=== PATIENT | female | born 1985 | race Asian ===

== ENCOUNTER 2019-02-14 10:03 | Inpatient (IN) | payer BC ==
[2019-02-14 10:39] VITALS: BMI 23.6
[2019-02-14] MEDS ORDERED: Ondansetron PF 4 MG/2 ML Vial IVP PRN ×3 (10:44→16:11)
[2019-02-14] MEDS ORDERED: Promethazine HCl 25 MG/ML VIAL IM PRN ×2 (10:44→13:21)
[2019-02-14] MEDS ORDERED: Docusate 100 MG CAP PO PRN (10:44)
[2019-02-14] MEDS ORDERED: hydrALAZINE 20 MG/ML VIAL SLOW IVP PRN ×2 (10:44→16:11)
[2019-02-14] MEDS ORDERED: Bicitra 30 ML UDCUP PO SCH (10:45)
[2019-02-14] MEDS ORDERED: CEFAZOLIN 2 GM in Premix Bag 1 BAG IVPB SCH (10:45)
[2019-02-14] MEDS ORDERED: Lactated Ringer's 1,000 ML IV SCH (10:45)
[2019-02-14 11:46] LABS: HBSAg Index 0.18 S/CO (0-0.99); Hep B Surf Ag Non-Reactive S/CO (NonReactive)
[2019-02-14 11:52] LABS: Syphilis Antibody Nonreactive (Nonreactive); Syphilis Antibody Index 0.06 S/CO (<1.00 Non-Reactive)
[2019-02-14 11:54] LABS: Hemoglobin 12.9 g/dL (12.0-16.0); Mean Corpuscular HGB CONC 34.2 g/dL (32.0-36.0); Mean Corpuscular Hemoglobin 30.4 pg (27.0-31.0); Mean Corpuscular Volume 88.7 fL (78.0-98.0); Platelet Count 198 thou/uL (130-400); RBC Distribution Width 11.7 % (11.5-14.5); Red Blood Cell (RBC) Count 4.23 mill/uL (4.20-5.40); White Blood Cell (WBC) Count 8.7 thou/uL (4.8-10.8)
[2019-02-14] MEDS ORDERED: MORPHINE 5 MG/10 ML PF VIAL ONE (12:03)
[2019-02-14] MEDS ORDERED: ePHEDrine/0.9% NaCl/PF SYRINGE 50 mg/10 ml ONE (12:03)
[2019-02-14] MEDS ORDERED: Phenylephrine HCL 10 MG/ML VIAL ONE (12:20)
[2019-02-14] MEDS ORDERED: diphenhydrAMINE 50 MG/ML VIAL IVP PRN (13:21)
[2019-02-14] MEDS ORDERED: HYDROmorphone 2 MG/ML VIAL SLOW IVP PRN (13:21)
[2019-02-14] MEDS ORDERED: Naloxone HCl 0.4 mg/ml Vial IVP PRN ×2 (13:21)
[2019-02-14] MEDS ORDERED: Ondansetron HCl/PF 4 MG/2 ML Vial IVP PRN (13:21)
[2019-02-14] MEDS ORDERED: Ketorolac Tromethamine 30 MG/ML VIAL IVP PRN (13:21)
[2019-02-14] MEDS ORDERED: L&D-Morphine 4 MG/ML VIAL SLOW IVP PRN (13:21)
[2019-02-14] MEDS ORDERED: Promethazine HCl 25 MG SUPP PR PRN (13:21)
[2019-02-14] MEDS ORDERED: Meperidine HCl/PF 25 MG/ML VIAL SLOW IVP PRN (13:21)
[2019-02-14] MEDS ORDERED: Ketorolac Tromethamine 30 MG/ML VIAL IVP SCH (13:30)
[2019-02-14] MEDS ORDERED: Communication Order-Pharmacy FS SCH (13:30)
[2019-02-14] MEDS ORDERED: NS / Oxytocin 40 units/1000ml 1,000 ML ONE (15:14)
--- NOTE | 2019-02-14 16:07 | OP ---
DATE OF PROCEDURE: 02/14/2019 CO-SURGEON: Moiz Self MD. CODING ANALYST SURGEON: Neeta Buck MD. ANESTHESIA: Spinal catheterization. PREOPERATIVE DIAGNOSES: 1. Term intrauterine at 39 weeks. 2. Declines trial of labor. 3. Contracted pelvis. POSTOPERATIVE DIAGNOSES: 1. Term intrauterine at 39 weeks. 2. Declines trial of labor. 3. Contracted pelvis. PROCEDURE PERFORMED: Primary low transverse section. ANESTHESIA: Spinal catheterization as already mentioned. FINDINGS: 1. Contracted pelvis with narrow subpubic arch and prominent sacrum. 2. Cephalopelvic disproportion secondary to size of pelvis and male infant. 3. Vigorous male , 8 pounds 1 ounce. Apgars 8 and 10. 4. Normal uterus, tubes, and ovaries. COMPLICATIONS: None. SPECIMENS REMOVED: Cord blood. HISTORY AND INDICATIONS: Mrs. Tata Wilson is a very pleasant 33-year-old female G1, P0, who is from our clinic for obstetric care. She presented to Labor and delivery at [facility] this morning for scheduled primary delivery. She declines trial of labor secondary to family history of deliveries and contracted pelvis with a baby that was sized greater than dates. She was adamant, she wished to proceed with delivery after thorough consent and counseling. Her surgical disclosures were signed and placed in the chart. Questions were answered to the patient's family satisfaction. DESCRIPTION OF PROCEDURE: After consent and counseling, Ms. Tata Wilson was taken to the operating room and adequate level of anesthesia was obtained via spinal catheterization. The patient was prepped and draped in usual sterile fashion for abdominal surgery. A Georges was placed in the bladder, which was noted to be draining clear urine. Attention was then turned to performing the primary low-transverse section (LT CS). A Pfannenstiel incision was made and carried sharply to the fascia, which was also sharply incised. The midline was identified and the rectus muscles were retracted laterally. The abdominal peritoneal cavity was entered with usual safeguards carried out. A retractor was placed and a bladder flap was created on the vesicouterine peritoneum. A bladder blade was then placed. A low-transverse incision was made on the well-developed lower uterine segment. Upon entering the amniotic sac, a copious amount of clear amniotic fluid was visualized. The was noted to be vertex presentation in the occiput transverse position still high in the pelvis. Head was delivered with the assistance of vacuum. The vertex was delivered in an atraumatic fashion. Shoulders and body were then carefully delivered as well. The cord was doubly clamped and cut. The infant was handed to the pediatric team in attendance for the delivery. The was a vigorous viable male weighing 8 pounds 1 ounce with Apgars of 8 and 10, obtained at 1 and 5 minutes respectively. Cord blood was obtained. The placenta was manually removed from the uterus. The uterus was exteriorized and good tone was noted. The uterine cavity was cleared of remaining clot and fluid. The low-transverse incision was closed in a running locked ligature of #1 chromic. A second imbricating layer was placed to facilitate strength and hemostasis. The vesicouterine peritoneum was reapproximated with a running ligature of 2-0 Monocryl suture. The posterior cul-de-sac and gutters were cleared of clot and fluid. The pelvis was carefully inspected, and the sacrum was noted to be extremely prominent. In addition, in the clinical setting, the outlet was noted to be contracted with a narrow outlet in the deep subpubic arch. 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 Seprafilm was applied to the low-transverse incision and to the anterior aspect of the uterus for adhesion prevention. The uterus was returned to the abdomen. Good tone and hemostasis were appreciated. Lap, sponge, and needle counts were correct. The incision was carefully inspected and noted to be hemostatic. The peritoneum was closed in a running ligature of 2-0 Vicryl. The rectus muscles were reapproximated in the midline with interrupted ligatures of 2-0 Vicryl. The fascia was closed with two ligatures of 0 Vicryl, which were tied in the midline. Good fascial integrity was appreciated. The incision was irrigated with copious amount of warm normal saline. Hemostasis was obtained with Bovie cauterization. The subcutaneous tissue was closed with interrupted ligatures of 2-0 plain. The skin was closed with subcuticular stitch of 4-0 Monocryl and dressed with Dermabond. Lap, sponge, and needle counts were correct x3. A pressure dressing and ice packs were subsequently placed. The patient was taken to the recovery room in good condition. The baby was doing well in the nursery. Immediately following surgery, the patient and family were made aware of the surgical procedure and operative findings. Questions answered to their satisfaction. Job ID: [id number]
[2019-02-14] MEDS ORDERED: Meperidine HCl/PF 25 MG/ML VIAL IM PRN (16:11)
[2019-02-14] MEDS ORDERED: Zolpidem Tartrate 5 MG TAB PO PRN (16:11)
[2019-02-14] MEDS ORDERED: Lanolin Ointment 7 GM TUBE TOP PRN (16:11)
[2019-02-14] MEDS ORDERED: HYDROcodone/Acetaminophen 5/325 mg Tablet PO PRN (16:11)
[2019-02-14] MEDS ORDERED: Simethicone Chewable 80 MG TAB PO PRN (16:11)
[2019-02-14] MEDS ORDERED: diphenhydrAMINE 25 MG CAP PO PRN (16:11)
[2019-02-14] MEDS ORDERED: Adacel (T-DAP) 0.5 ML SYRINGE IM ONE (18:00)
[2019-02-14] MEDS ORDERED: Sodium Chloride 0.9% 10 ML ONE (23:19)
[2019-02-14] MEDS: Docusate Calcium (SURFAK) 240 MG CAP PO SCH (23:22)
[2019-02-14] MEDS: Ibuprofen 800 MG TAB PO SCH (23:23)
[2019-02-14] MEDS: Ferrous Sulfate 325 MG TAB PO SCH (23:23)
[2019-02-15] MEDS ORDERED: Sodium Chloride 0.9% 10 ML ONE ×4 (04:27→09:17)
[2019-02-15] MEDS: Naloxone HCl 0.4 mg/ml Vial IV PRN ×3 (04:30→05:13)
[2019-02-15 04:39] LABS: Hemoglobin 10.5 g/dL (12.0-16.0); Mean Corpuscular HGB CONC 34.7 g/dL (32.0-36.0); Mean Corpuscular Hemoglobin 30.9 pg (27.0-31.0); Mean Corpuscular Volume 89.1 fL (78.0-98.0); Mean Platelet Volume 8.8 fL (7.4-10.4); Platelet Count 159 thou/uL (130-400); RBC Distribution Width 11.6 % (11.5-14.5); Red Blood Cell (RBC) Count 3.39 mill/uL (4.20-5.40); White Blood Cell (WBC) Count 13.3 thou/uL (4.8-10.8)
[2019-02-15] MEDS: Ibuprofen 800 MG TAB PO SCH ×3 (06:45→23:26)
[2019-02-15] MEDS: Ferrous Sulfate 325 MG TAB PO SCH ×2 (07:34→21:38)
[2019-02-15] MEDS: Docusate Calcium (SURFAK) 240 MG CAP PO SCH ×2 (10:06→23:27)
[2019-02-16] MEDS: Ibuprofen 800 MG TAB PO SCH ×3 (06:07→21:27)
[2019-02-16] MEDS: Ferrous Sulfate 325 MG TAB PO SCH ×2 (10:13→23:53)
[2019-02-16] MEDS: Docusate Calcium (SURFAK) 240 MG CAP PO SCH ×2 (10:13→21:27)
[2019-02-17] MEDS: Ibuprofen 800 MG TAB PO SCH (05:05)
[2019-02-17 08:28] VITALS: BP 115/84; TEMP 98.3
[2019-02-17] MEDS: Ferrous Sulfate 325 MG TAB PO SCH (08:47)
[2019-02-17] MEDS: Docusate Calcium (SURFAK) 240 MG CAP PO SCH (08:47)
== END 2019-02-17 11:15 | disposition home or self-care (01) | DRG 788 ==
LOC: L&D 10:03 → 3SW 15:57
PROVIDERS: ADMIT Obstetrics & Gynecology; ATTEND Obstetrics & Gynecology
PROC: 10D00Z1 Extraction of Products of Conception, Low, Open Approach (ICD-10-PCS; principal; 2019-02-14)
DX: O33.9 Maternal care for disproportion, unspecified (principal); O36.63X0 Maternal care for excessive fetal growth, third trimester, not applicable or unspecified; Z3A.39 39 weeks gestation of pregnancy; Z37.0 Single live birth
CPT/HCPCS: 36415; 85027; 86780; 86850; 86900; 86901; 87340; J0690; J1885; J2274; J2310; J2370